=== PATIENT | male | born 1995 | race Caucasian/White ===

== ENCOUNTER 2016-07-16 00:14 | Emergency (ER) | payer OTHER ==
[2016-07-16] MEDS ORDERED: ACETAMINOPHEN 325 MG TAB As Ordered ONE (00:36)
--- NOTE | 2016-07-16 00:43 | EDDOCDS ---
Physician Documentation [facility] Name: Chad Martínez Age: 21 yrs Sex: Male : 1995 Arrival Date: 07/16/2016 Time: 00:14 Bed Triage 1 Private MD: Disposition: 07/16/16 00:33 Discharged to Home/Self Care. Impression: Otalgia, left ear, Abscess of left external ear. - Condition is Stable. - Discharge Instructions: Earache. - Medication Reconciliation, Local Pharmacy Hours form. - Follow up: Private Physician; When: Call to arrange an appointment; Reason: Recheck today's complaints, Continuance of care. - Problem is new. - Symptoms are unchanged. Historical: - Allergies: no known allergies; - Home Meds: 1. none - PMHx: Chronic Back pain; - PSHx: none; - Social history: Smoking status: Patient uses tobacco products, light tobacco smoker. Ethnicity: No barriers to communication noted, The patient speaks fluent South Sudanese, Speaks appropriately for age. - Family history: Not pertinent. - : The pt / caregiver states he / she is not on anticoagulants. Home medication list is obtained from the patient. - Exposure Risk Screening:: None identified. Vital Signs: 07/16 00:27 BP 146 / 83; Pulse 88; Resp 16; Temp 98.2(O); Pulse Ox 98% on R/A; Weight 91.63 kg / jo3 202.01 lbs; Height 5 ft. 8 in. (172.72 cm); 00:27 Body Mass Index 30.71 (91.63 kg, 172.72 cm) jo3 MDM: 00:32 Acetaminophen Tablet 975 mg PO once ordered. mo1 Administered Medications: 00:42 Drug: Acetaminophen 975 mg [acetaminophen 325 mg tablet (3 tabs)] Route: PO; jo3 Signatures: Alpa Palacios RN RN jo3 Artur Yee PA PA mo1 MTDD
--- NOTE | 2016-07-16 00:43 | EDDOCDS ---
Nurse's Notes [facility] Name: Chda Martínez Age: 21 yrs Sex: Male : 1995 Arrival Date: 07/16/2016 Time: 00:14 Bed Triage 1 Private MD: Diagnosis: Otalgia, left ear;Abscess of left external ear Presentation: 07/16 00:25 Presenting complaint: Patient states: Small amount of blood in left ear. denies pain. jo3 Adult Sepsis Screening: The patient does not have new or worsening altered mentation. Patient's respiratory rate is less than 22. Systolic blood pressure is greater than 100. Patient has a qSOFA score of 0- Negative Sepsis Screen. Suicide/Homicide risk assessment- the patient denies having any suicidal and/or homicidal ideations and does not present with any other emotional, behavioral or mental health complaints. 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 Transition of care: patient was not received from another setting of care. 00:25 Acuity: JAH Level 5 jo3 00:25 Method Of Arrival: Walkin/Carried/Asstd jo3 Triage Assessment: 00:27 General: Appears in no apparent distress, comfortable, Behavior is appropriate for age, jo3 cooperative. Pain: Denies pain. HIV screening NA for this visit Offered previously. Neurological: Level of Consciousness is awake, alert, Oriented to person, place, time. EENT: small amount of blood noted in left ear canal. Respiratory: No deficits noted. Airway is patent Respiratory effort is even, unlabored. Historical: - Allergies: no known allergies; - Home Meds: 1. none - PMHx: Chronic Back pain; - PSHx: none; - Social history: Smoking status: Patient uses tobacco products, light tobacco smoker. Ethnicity: No barriers to communication noted, The patient speaks fluent French, Speaks appropriately for age. - Family history: Not pertinent. - : The pt / caregiver states he / she is not on anticoagulants. Home medication list is obtained from the patient. - Exposure Risk Screening:: None identified. Screenin:42 Screening information is obtained from the patient. Fall risk: No risks identified. jo3 Assistance ADL's: requires no assistance with activities of daily living. Abuse/DV Screen: The patient / caregiver reports he/she is: not in a situation that causes fear, pain or injury. Nutritional screening: No deficits noted. Advance Directives: There is no active DNR order. home support is adequate. Assessment: 00:42 General: Appears in no apparent distress, comfortable, Behavior is appropriate for age, jo3 cooperative. Vital Signs: 00:27 BP 146 / 83; Pulse 88; Resp 16; Temp 98.2(O); Pulse Ox 98% on R/A; Weight 91.63 kg; jo3 Height 5 ft. 8 in. (172.72 cm); 00:27 Body Mass Index 30.71 (91.63 kg, 172.72 cm) jo3 Vitals: 00:27 Log In Time: July 16, 2016 at 00:14. jo3 ED Course: 00:15 Patient visited by Ashutosh Hall Reg. pm4 00:15 Patient moved to Waiting pm4 00:26 Triage Initiated jo3 00:29 Patient visited by Alpa Palacios RN. jo3 00:29 Patient moved to I2 / M2 jo3 00:30 Artur Yee PA is PHCP. mo1 00:30 Guru Key DO is Attending Physician. mo1 00:30 Patient moved to Triage 1 ajs 00:32 Patient visited by Artur Yee PA. mo1 00:42 The patient / caregiver is instructed regarding the plan of care and ED course. jo3 00:42 No IV's were initiated during this patient's visit. No procedures done that require jo3 assistance. Administered Medications: 00:42 Drug: Acetaminophen 975 mg [acetaminophen 325 mg tablet (3 tabs)] Route: PO; jo3 Order Results: There are currently no results for this order. Outcome: 00:33 Discharge ordered by Provider. mo1 00:42 Discharge Assessment: Patient awake, alert and oriented x 3. No cognitive and/or jo3 functional deficits noted. Patient verbalized understanding of disposition instructions. patient administered narcotics - no. The following High Risk Discharge criteria are identified: None. Discharged to home ambulatory, with significant other. Condition: stable. Discharge instructions given to patient, Instructed on discharge instructions, follow up and referral plans. Demonstrated understanding of instructions, Pt was receptive of discharge instructions/ teaching. No special radiology studies were completed. Property sent home with patient. 00:43 Patient left the ED. jo3 Signatures: Alpa Palacios RN RN jo3 Leta Ayala Michael, PA PA mo1 Ashutosh Hall, Reg Reg pm4 MTDD
--- NOTE | 2016-07-18 01:44 | EDDOCDS ---
Nurse's Notes [facility] Name: Chad Martínez Age: 21 yrs Sex: Male : 1995 Arrival Date: 07/16/2016 Time: 00:14 Bed Triage 1 Private MD: Diagnosis: Otalgia, left ear;Abscess of left external ear Presentation: 07/16 00:25 Presenting complaint: Patient states: Small amount of blood in left ear. denies pain. jo3 Adult Sepsis Screening: The patient does not have new or worsening altered mentation. Patient's respiratory rate is less than 22. Systolic blood pressure is greater than 100. Patient has a qSOFA score of 0- Negative Sepsis Screen. Suicide/Homicide risk assessment- the patient denies having any suicidal and/or homicidal ideations and does not present with any other emotional, behavioral or mental health complaints. 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 Transition of care: patient was not received from another setting of care. 00:25 Acuity: JAH Level 5 jo3 00:25 Method Of Arrival: Walkin/Carried/Asstd jo3 Triage Assessment: 00:27 General: Appears in no apparent distress, comfortable, Behavior is appropriate for age, jo3 cooperative. Pain: Denies pain. HIV screening NA for this visit Offered previously. Neurological: Level of Consciousness is awake, alert, Oriented to person, place, time. EENT: small amount of blood noted in left ear canal. Respiratory: No deficits noted. Airway is patent Respiratory effort is even, unlabored. Historical: - Allergies: no known allergies; - Home Meds: 1. none - PMHx: Chronic Back pain; - PSHx: none; - Social history: Smoking status: Patient uses tobacco products, light tobacco smoker. Ethnicity: No barriers to communication noted, The patient speaks fluent Mohawk, Speaks appropriately for age. - Family history: Not pertinent. - : The pt / caregiver states he / she is not on anticoagulants. Home medication list is obtained from the patient. - Exposure Risk Screening:: None identified. Screenin:42 Screening information is obtained from the patient. Fall risk: No risks identified. jo3 Assistance ADL's: requires no assistance with activities of daily living. Abuse/DV Screen: The patient / caregiver reports he/she is: not in a situation that causes fear, pain or injury. Nutritional screening: No deficits noted. Advance Directives: There is no active DNR order. home support is adequate. Assessment: 00:42 General: Appears in no apparent distress, comfortable, Behavior is appropriate for age, jo3 cooperative. Vital Signs: 00:27 BP 146 / 83; Pulse 88; Resp 16; Temp 98.2(O); Pulse Ox 98% on R/A; Weight 91.63 kg; jo3 Height 5 ft. 8 in. (172.72 cm); 00:27 Body Mass Index 30.71 (91.63 kg, 172.72 cm) jo3 Vitals: 00:27 Log In Time: July 16, 2016 at 00:14. jo3 ED Course: 00:15 Patient visited by Ashutosh Hall Reg. pm4 00:15 Patient moved to Waiting pm4 00:26 Triage Initiated jo3 00:29 Patient visited by Alpa Palacios RN. jo3 00:29 Patient moved to I2 / M2 jo3 00:30 Artur Yee PA is PHCP. mo1 00:30 Guru Key DO is Attending Physician. mo1 00:30 Patient moved to Triage 1 ajs 00:32 Patient visited by Artur Yee PA. mo1 00:42 The patient / caregiver is instructed regarding the plan of care and ED course. jo3 00:42 No IV's were initiated during this patient's visit. No procedures done that require jo3 assistance. 00:49 [facility] Payment Agreement was scanned into [employer] and attached to record. [facility] 14:22 T-Sheet-- Draft Copy was scanned into [employer] and attached to record. gb Administered Medications: 00:42 Drug: Acetaminophen 975 mg [acetaminophen 325 mg tablet (3 tabs)] Route: PO; jo3 Order Results: There are currently no results for this order. Outcome: 00:33 Discharge ordered by Provider. mo1 00:42 Discharge Assessment: Patient awake, alert and oriented x 3. No cognitive and/or jo3 functional deficits noted. Patient verbalized understanding of disposition instructions. patient administered narcotics - no. The following High Risk Discharge criteria are identified: None. Discharged to home ambulatory, with significant other. Condition: stable. Discharge instructions given to patient, Instructed on discharge instructions, follow up and referral plans. Demonstrated understanding of instructions, Pt was receptive of discharge instructions/ teaching. No special radiology studies were completed. Property sent home with patient. 00:43 Patient left the ED. jo3 Signatures: Ita Marquez, Reg Reg gb Alpa PalaciosRN RN jo3 Leta Ayala Michael, PA PA cordelia1 Deann Rosen Ashutosh Lemus, Reg Reg pm4 Chart Complete MTDD
--- NOTE | 2016-07-18 01:44 | EDDOCDS ---
Physician Documentation [facility] Name: Chad Martínez Age: 21 yrs Sex: Male : 1995 Arrival Date: 07/16/2016 Time: 00:14 Bed Triage 1 Private MD: Disposition: 07/16/16 00:33 Discharged to Home/Self Care. Impression: Otalgia, left ear, Abscess of left external ear. - Condition is Stable. - Discharge Instructions: Earache. - Medication Reconciliation, Local Pharmacy Hours form. - Follow up: Private Physician; When: Call to arrange an appointment; Reason: Recheck today's complaints, Continuance of care. - Problem is new. - Symptoms are unchanged. Historical: - Allergies: no known allergies; - Home Meds: 1. none - PMHx: Chronic Back pain; - PSHx: none; - Social history: Smoking status: Patient uses tobacco products, light tobacco smoker. Ethnicity: No barriers to communication noted, The patient speaks fluent Panamanian, Speaks appropriately for age. - Family history: Not pertinent. - : The pt / caregiver states he / she is not on anticoagulants. Home medication list is obtained from the patient. - Exposure Risk Screening:: None identified. Vital Signs: 07/16 00:27 BP 146 / 83; Pulse 88; Resp 16; Temp 98.2(O); Pulse Ox 98% on R/A; Weight 91.63 kg / jo3 202.01 lbs; Height 5 ft. 8 in. (172.72 cm); 00:27 Body Mass Index 30.71 (91.63 kg, 172.72 cm) jo3 MDM: 00:32 Acetaminophen Tablet 975 mg PO once ordered. mo1 00:43 Financial registration complete. [facility] 00:49 [facility] Payment Agreement was scanned into [employer] and attached to record. [facility] 14:22 T-Sheet-- Draft Copy was scanned into [employer] and attached to record. gb Administered Medications: 00:42 Drug: Acetaminophen 975 mg [acetaminophen 325 mg tablet (3 tabs)] Route: PO; jo3 Signatures: Ita Marquez, Alpa Morelos RN RN jo3 Artur Yee PA PA mo1 Deann Roesn [facility] The chart was reviewed and I authenticate all verbal orders and agree with the evaluation and treatment provided.Attachments: 00:49 [facility] [place] [facility] 14:22 T-Sheet-- Draft Copy gb Chart Complete MTDD
--- NOTE | 2016-07-18 01:44 | EDDOCDS ---
Physician Documentation [facility] Name: Chad Martínez Age: 21 yrs Sex: Male : 1995 Arrival Date: 07/16/2016 Time: 00:14 Bed Triage 1 Private MD: Disposition: 07/16/16 00:33 Discharged to Home/Self Care. Impression: Otalgia, left ear, Abscess of left external ear. - Condition is Stable. - Discharge Instructions: Earache. - Medication Reconciliation, Local Pharmacy Hours form. - Follow up: Private Physician; When: Call to arrange an appointment; Reason: Recheck today's complaints, Continuance of care. - Problem is new. - Symptoms are unchanged. Historical: - Allergies: no known allergies; - Home Meds: 1. none - PMHx: Chronic Back pain; - PSHx: none; - Social history: Smoking status: Patient uses tobacco products, light tobacco smoker. Ethnicity: No barriers to communication noted, The patient speaks fluent Chadian, Speaks appropriately for age. - Family history: Not pertinent. - : The pt / caregiver states he / she is not on anticoagulants. Home medication list is obtained from the patient. - Exposure Risk Screening:: None identified. Vital Signs: 07/16 00:27 BP 146 / 83; Pulse 88; Resp 16; Temp 98.2(O); Pulse Ox 98% on R/A; Weight 91.63 kg / jo3 202.01 lbs; Height 5 ft. 8 in. (172.72 cm); 00:27 Body Mass Index 30.71 (91.63 kg, 172.72 cm) jo3 MDM: 00:32 Acetaminophen Tablet 975 mg PO once ordered. mo1 00:43 Financial registration complete. [facility] 00:49 [facility] Payment Agreement was scanned into [employer] and attached to record. [facility] 14:22 T-Sheet-- Draft Copy was scanned into [employer] and attached to record. gb Administered Medications: 00:42 Drug: Acetaminophen 975 mg [acetaminophen 325 mg tablet (3 tabs)] Route: PO; jo3 Signatures: Ita Marquez, Alpa Morelos RN RN jo3 Artur Yee PA PA mo1 Deann Rosen [facility] The chart was reviewed and I authenticate all verbal orders and agree with the evaluation and treatment provided.Attachments: 00:49 [facility] [place] Payment Agreement [facility] 14:22 T-Sheet-- Draft Copy gb Chart Complete MTDD
== END 2016-07-16 00:43 | disposition home or self-care (01) ==
LOC: M ED 00:14
DX: S00.412A Abrasion of left ear, initial encounter (principal); X58.XXXA Exposure to other specified factors, initial encounter; Y92.89 Other specified places as the place of occurrence of the external cause; Y93.89 Activity, other specified; Y99.8 Other external cause status; G89.29 Other chronic pain; F17.200 Nicotine dependence, unspecified, uncomplicated

== ENCOUNTER 2017-03-25 01:00 | Emergency (ER) | payer OTHER ==
[~2017-03-25] VITALS: Ht 172.7 cm; Wt 93.0 kg
[2017-03-25] MEDS ORDERED: NAPR500T PO (01:47)
[2017-03-25] MEDS ORDERED: NAPROXEN 250 MG TAB PO ONE (02:00)
[2017-03-25 02:18] VITALS: BP 133/58
== END 2017-03-25 02:22 | disposition home or self-care (01) ==
LOC: M ED 01:00
DX: M71.21 Synovial cyst of popliteal space [Baker], right knee (principal); F17.210 Nicotine dependence, cigarettes, uncomplicated

== ENCOUNTER 2017-05-24 23:53 | Emergency (ER) | payer OTHER ==
[~2017-05-24] VITALS: Ht 172.7 cm; Wt 92.9 kg
[2017-05-24 23:53] VITALS: BP 140/82
[~2017-05-24 23:53] MED LIST: NAPR500T PO
== END 2017-05-25 02:53 | disposition left against medical advice (07) ==
LOC: M ED 23:53
DX: S99.919A Unspecified injury of unspecified ankle, initial encounter (principal); Z53.21 Procedure and treatment not carried out due to patient leaving prior to being seen by health care provider

== ENCOUNTER 2017-08-16 05:42 | Emergency (ER) | payer OTHER ==
[2017-08-16] MEDS: KETOROLAC 60 MG/2 ML VIAL (J1885) IM (07:24)
[2017-08-16 07:39] LABS: APPEARANCE, URINE CLEAR (CLEAR); BACTERIA, URINE AUTO NEGATIVE (NEGATIVE); BILIRUBIN, URINE AUTO NEGATIVE (NEGATIVE); BLOOD, URINE BLOOD 1+ (NEGATIVE); COLOR, URINE YELLOW (YELLOW); GLUCOSE, URINE (UA) AUTO NEGATIVE (NEGATIVE); KETONE, URINE AUTO TRACE mg/dL (NEGATIVE); LEUKOCYTE ESTERASE, URINE AUTO NEGATIVE (NEGATIVE); MUCUS, URINE SMALL (NEGATIVE); NITRITE, URINE AUTO NEGATIVE (NEGATIVE); PROTEIN, URINE AUTO NEGATIVE (NEGATIVE); RBC, URINE AUTO 1 /HPF (0-3); SPECIFIC GRAVITY URINE AUTO 1.013 (1.002-1.035); SQUAMOUS EPITHELIAL CELL UR AU 0 /HPF (0-6); WBC, URINE AUTO 0 /HPF (0-3)
== END 2017-08-16 07:54 | disposition home or self-care (01) ==
LOC: M ED 05:42
DX: S20.222A Contusion of left back wall of thorax, initial encounter (principal); W10.9XXA Fall (on) (from) unspecified stairs and steps, initial encounter; Y92.009 Unspecified place in unspecified non-institutional (private) residence as the place of occurrence of the external cause; F17.210 Nicotine dependence, cigarettes, uncomplicated
CPT/HCPCS: J1885

== ENCOUNTER 2019-01-01 16:53 | Emergency (ER) | payer OTHER ==
[~2019-01-01] VITALS: Ht 172.7 cm; Wt 90.7 kg
[~2019-01-01 16:53] MED LIST changes: +NAPR-837 PO; -NAPR500T PO
[2019-01-01 16:54] VITALS: BP 140/83
[2019-01-01] MEDS ORDERED: IBUP-1022 PO (17:52)
[2019-01-01] MEDS ORDERED: IBUPROFEN 600 MG TAB PO ONE (18:00)
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
== END 2019-01-01 18:05 | disposition home or self-care (01) ==
LOC: M ED 16:53
DX: S83.421A Sprain of lateral collateral ligament of right knee, initial encounter (principal); W19.XXXA Unspecified fall, initial encounter; Y92.9 Unspecified place or not applicable; Y93.9 Activity, unspecified; Y99.9 Unspecified external cause status

== ENCOUNTER → 2019-10-08 | Outpatient (REF) | payer OTHER ==
[~2019-10-08] MED LIST changes: +IBUP-1022 PO
[2019-10-08 12:52] LABS: BASO # 0.1 10^3/uL (0.0-0.2); BASO % 0.7 % (0.0-1.0); EOS # 0.2 10^3/uL (0.0-0.5); EOS % 1.9 % (0.0-3.0); HEMOGLOBIN 15.8 g/dl (13.5-17.5); LYMPH # 3.4 10^3/uL (1.5-5.0); LYMPH % 33.3 % (24.0-44.0); MEAN CORPUSCULAR HEMOGLOBIN 30.7 pg (27.0-33.0); MEAN CORPUSCULAR HGB CONC 34.3 g/dl (32.0-36.5); MEAN CORPUSCULAR VOLUME 89.3 fl (80.0-96.0); MONO # 0.9 10^3/uL (0.0-0.8); MONO % 9.2 % (0.0-5.0); NEUTROPHILS # 5.6 10^3/uL (1.5-8.5); NEUTROPHILS % 54.6 % (36.0-66.0); PLATELET COUNT, AUTOMATED 239 10^3/uL (150-450); RED BLOOD COUNT 5.15 10^6/uL (4.30-6.10); WHITE BLOOD COUNT 10.3 10^3/uL (4.0-10.0)
[2019-10-08 13:26] LABS: ALBUMIN 4.2 GM/DL (3.2-5.2); ALT/SGPT 31 U/L (12-78); BILIRUBIN,TOTAL 1.2 MG/DL (0.2-1.0); BLOOD UREA NITROGEN 20 MG/DL (7-18); CALCIUM LEVEL 9.2 MG/DL (8.5-10.1); CARBON DIOXIDE LEVEL 25 MEQ/L (21-32); CHLORIDE LEVEL 106 MEQ/L (98-107); CHOLESTEROL LEVEL 199 MG/DL (<200); CHOLESTEROL RISK RATIO 4.326 (<5); CREATININE FOR GFR 0.97 MG/DL (0.70-1.30); FREE T4 1.31 NG/DL (0.76-1.46); GLOMERULAR FILTRATION RATE > 60.0 (>60); GLUCOSE, FASTING 89 MG/DL (70-100); HDL CHOLESTEROL 46 MG/DL (>40); LDL CHOLESTEROL 127 MG/DL (<100); NON-HDL-C 153 MG/DL; POTASSIUM SERUM 3.6 MEQ/L (3.5-5.1); SODIUM LEVEL 137 MEQ/L (136-145); THYROID STIMULATING HORMONE 0.839 uIU/ML (0.358-3.740); TOTAL 25(OH) VITAMIN D 18.5 NG/ML (30.0-100.0); TRIGLYCERIDES LEVEL 132 MG/DL (<150)
[2019-10-08 13:58] LABS: HEMOGLOBIN A1c 5.2 %
== END ==
LOC: M LAB REF 12:24
PROVIDERS: ATTEND Nurse Practitioner Family
DX: Z13.9 Encounter for screening, unspecified (principal); Z13.29 Encounter for screening for other suspected endocrine disorder; F12.90 Cannabis use, unspecified, uncomplicated

== ENCOUNTER 2020-05-11 17:42 | Emergency (ER) | payer OTHER, MEDICAID ==
[~2020-05-11] VITALS: Ht 172.7 cm; Wt 89.2 kg
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
[2020-05-11] MEDS ORDERED: NORCO 5/325MG TABLET (BULK FOR ED) PO ONE (19:00)
[2020-05-11] MEDS ORDERED: PERCOCET 5MG/325MG TAB PO ONE (19:00)
[2020-05-11] MEDS ORDERED: NORC1TAB7 PO (19:09)
[2020-05-11 19:21] VITALS: BP 140/93
== END 2020-05-11 19:23 | disposition home or self-care (01) ==
LOC: M ED 17:42
DX: S62.355A Nondisplaced fracture of shaft of fourth metacarpal bone, left hand, initial encounter for closed fracture (principal); W22.8XXA Striking against or struck by other objects, initial encounter; Y92.099 Unspecified place in other non-institutional residence as the place of occurrence of the external cause; Y93.89 Activity, other specified; Y99.9 Unspecified external cause status; F17.200 Nicotine dependence, unspecified, uncomplicated

== ENCOUNTER → 2020-05-29 | Outpatient (CLI) | payer OTHER, MEDICAID ==
[~2020-05-29] MED LIST changes: +NORC1TAB7 PO
== END ==
LOC: M LABSMTC 09:14
PROVIDERS: ATTEND Anesthesiology
DX: Z11.59 Encounter for screening for other viral diseases (principal)

== ENCOUNTER 2020-06-03 07:56 | Day surgery (SDC) | payer OTHER ==
[~2020-06-03] VITALS: Ht 172.7 cm; Wt 90.3 kg
[~2020-06-03 07:56] MED LIST changes: +LR 1,000 ML IV ONE; +ceFAZolin SOD 2 GM in IV 1 EA IV ONE
[2020-06-03] MEDS ORDERED: MIDAZOLAM INJ 2MG/2ML VIAL (J2250 PER 1MG) As Ordered ONE (08:43)
[2020-06-03] MEDS ORDERED: fentaNYL 100 MCG/2 ML INJECTION (J3010) As Ordered ONE ×2 (08:44→12:30)
--- NOTE | 2020-06-03 10:16 | IPN ---
PROGRESS NOTE DATE: 06/03/2020 SUBJECTIVE AND PLAN: Patient seen and examined. He wished to go ahead with an ORIF of his left fourth metacarpal fracture. He is left hand dominant. He wants to do this to hopefully improve function of his hand, but also for cosmetic reasons so he does not have a bump on the back of his hand and a shortened fourth digit. He was scheduled for last week, but did not get his COVID test on time. he knows that we are quite some time from the injury somewhere around 3+ weeks and there is likely to be some healing which will make this more challenging to likely take-down the fracture and realign it and hopefully plate it. He under stands the nature of this, the risks of bleeding, infection, damage to nerves and vessels, persistent pain, malunion, nonunion, loss or reduction, stiffness, tendon injury among others.
[2020-06-03] MEDS ORDERED: dexameTHASONE 4 MG/ML 1ML VIAL (J1100 PER 1MG) As Ordered ONE (10:33)
[2020-06-03] MEDS ORDERED: propofoL 200 MG/20 ML VIAL As Ordered ONE (10:33)
[2020-06-03] MEDS ORDERED: METOCLOPRAMIDE INJ 10MG/2ML VIAL (J2765 PER 1) As Ordered ONE (10:33)
[2020-06-03] MEDS ORDERED: ACETAMINOPHEN 1000MG 100ML IV BTL (OFIRMEV) (J0131 PER 10MG) As Ordered ONE (10:34)
[2020-06-03] MEDS ORDERED: KETOROLAC 60MG 2ML VIAL As Ordered ONE (10:35)
[2020-06-03] MEDS ORDERED: ONDANSETRON 4MG/2ML VIAL As Ordered ONE (10:35)
[2020-06-03] MEDS ORDERED: BUPIVACAINE HCL 0.5% 30 ML VIAL As Ordered ONE (11:20)
[2020-06-03] MEDS ORDERED: HYDROmorphone HCL 2 MG/ML 1ML VIAL (J1170) As Ordered ONE (11:22)
--- NOTE | 2020-06-03 11:30 | REP ---
INDICATION: LEFT FOREARM FRACTURE. COMPARISON: Comparison left hand radiographs May 11, 2020.. TECHNIQUE: Three views. 11.7 seconds of fluoroscopy time is reported. FINDINGS: A sequence of 3 last image hold fluoroscopically obtained spot radiographs document screw plate fixation along the dorsal aspect of the 4th metacarpal. IMPRESSION: Procedural imaging. <Electronically signed by Alejandro Mallory > 06/03/20 1122
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
[2020-06-03] MEDS ORDERED: PERCOCET 5MG/325MG TAB As Ordered ONE (12:37)
[2020-06-03] MEDS ORDERED: NORCO, ANEXSIA 5/325MG TABLET (HYDROcodone/ACETAMINOPHEN) PO PRN ×2 (12:45)
[2020-06-03] MEDS ORDERED: ONDANSETRON 4MG/2ML VIAL IV PRN (12:45)
[2020-06-03] MEDS ORDERED: MEPERIDINE INJ 25 MG/ML VIAL (J2175) IV PRN (12:45)
[2020-06-03] MEDS ORDERED: PERCOCET 5MG/325MG TAB PO PRN (12:45)
[2020-06-03] MEDS ORDERED: METOCLOPRAMIDE INJ 10MG/2ML VIAL (J2765 PER 1) IV PRN (12:45)
[2020-06-03] MEDS ORDERED: fentaNYL 100 MCG/2 ML INJECTION (J3010) IV PRN (12:45)
[2020-06-03] MEDS ORDERED: LR 1,000 ML IV SCH ×2 (12:45)
[2020-06-03] MEDS ORDERED: MORPHINE 4 MG/ML 1ML VIAL/SYRINGE (J2270) IV PRN (12:45)
[2020-06-03 14:10] VITALS: BP 128/69
== END 2020-06-03 14:31 | disposition home or self-care (01) ==
LOC: M SDC 07:56
PROVIDERS: ATTEND Orthopaedic Surgery
DX: S62.325A Displaced fracture of shaft of fourth metacarpal bone, left hand, initial encounter for closed fracture (principal); W22.09XA Striking against other stationary object, initial encounter; Y93.89 Activity, other specified; Y99.9 Unspecified external cause status; Y92.89 Other specified places as the place of occurrence of the external cause; I10 Essential (primary) hypertension; E78.00 Pure hypercholesterolemia, unspecified; F41.9 Anxiety disorder, unspecified; F17.218 Nicotine dependence, cigarettes, with other nicotine-induced disorders
CPT/HCPCS: 26615; 76000; C1713; J0131; J0690; J1100; J1170; J1885; J2250; J2405; J2765; J3010

== ENCOUNTER 2021-04-12 03:36 | Emergency (ER) | payer OTHER ==
[~2021-04-12] VITALS: Ht 172.7 cm; Wt 89.1 kg
[~2021-04-12 03:36] MED LIST changes: -LR 1,000 ML IV ONE; -ceFAZolin SOD 2 GM in IV 1 EA IV ONE
[2021-04-12 03:37] VITALS: BP 155/91
--- OUTSIDE RECORDS SUMMARY | 2021-04-12 03:41 | CCD ---
Author Author [facility] Organization [facility] Address Unknown Phone Unavailable Care Team Providers Care Order Processing Specialist Name Role Phone Fish, B Allen FOLEY Unavailable Unavailable Fish, B Allen FOLEY Unavailable Unavailable Fish, B Allen FOLEY Unavailable Unavailable Fish, B Allen FOLEY Unavailable Unavailable Fish, B Allen FOLEY Unavailable Unavailable Fish, B Allen FOLEY Unavailable Unavailable Fish, B Allen FOLEY Unavailable Unavailable Fish, B Allen FOLEY Unavailable Unavailable Fish, B Allen FOLEY Unavailable Unavailable Fish, B Allen FOLEY Unavailable Unavailable Fish, B Allen FOLEY Unavailable Unavailable Fish, B Allen FOLEY Unavailable Unavailable Fish, B Allen FOLEY Unavailable Unavailable Fish, B Allen FOLEY Unavailable Unavailable Fish, B Allen FOLEY Unavailable Unavailable Fish, B Allen FOLEY Unavailable Unavailable Fish, B Allen FOLEY Unavailable Unavailable Fish, B Allen FOLEY Unavailable Unavailable Fish, B Allen FOLEY Unavailable Unavailable Fish, B Allen FOLEY Unavailable Unavailable Fish, B Allen FOLEY Unavailable Unavailable Fish, B Allen FOLEY Unavailable Unavailable Fish, B Allen FOLEY Unavailable Unavailable Fish, B Allen FOLEY Unavailable Unavailable Fish, B Allen FOLEY Unavailable Unavailable Fish, B Allen FOLEY Unavailable Unavailable Fish, B Allen FOLEY Unavailable Unavailable Fish, B Allen FOLEY Unavailable Unavailable Fish, B Allen FOLEY Unavailable Unavailable Fish, B Allen FOLEY Unavailable Unavailable Fish, B Allen FOLEY Unavailable Unavailable Fish, B Allen FOLEY Unavailable Unavailable Fish, B Allen FOLEY Unavailable Unavailable Fish, B Allen FOLEY Unavailable Unavailable Fish, B Allen FOLEY Unavailable Unavailable Fish, B Allen FOLEY Unavailable Unavailable Fish, B Allen FOLEY Unavailable Unavailable Fish, B Allen FOLEY Unavailable Unavailable Fish, B Allen FOLEY Unavailable Unavailable Fish, B Allen FOLEY Unavailable Unavailable Fish, B Allen FOLEY Unavailable Unavailable Fish, B Allen FOLEY Unavailable Unavailable Fish, B Allen FOLEY Unavailable Unavailable Fish, B Allen FOLEY Unavailable Unavailable Fish, B Allen FOLEY Unavailable Unavailable Fish, B Allen FOLEY Unavailable Unavailable Fish, B Allen FOLEY Unavailable Unavailable Fish, B Allen FOLEY Unavailable Unavailable Fish, B Allen FOLEY Unavailable Unavailable Fish, B Allen FOLEY Unavailable Unavailable Fish, B Allen FOLEY Unavailable Unavailable Fish, B Allen FLOEY Unavailable Unavailable Fish, B Allen FOLEY Unavailable Unavailable Fish, B Allen FOLEY Unavailable Unavailable Fish, B Allen FOLEY Unavailable Unavailable Fish, B Allen FOLEY Unavailable Unavailable MCELHERAN, RADHA PA Unavailable Unavailable MCELHERAN, RADHA PA Unavailable Unavailable MCELHERAN, RADHA PA Unavailable Unavailable MCELHERAN, RADHA PA Unavailable Unavailable MCELHERAN, RADHA PA Unavailable Unavailable MCELHERAN, RADHA PA Unavailable Unavailable MCELHERAN, RADHA PA Unavailable Unavailable MCELHERAN, RADHA PA Unavailable Unavailable MCELAN, RADHA PA Unavailable Unavailable MCELHERAN, RADHA PA Unavailable Unavailable MCELHERAN, RADHA PA Unavailable Unavailable MCELHERAN, RADHA PA Unavailable Unavailable MCELHERAN, RADHA PA Unavailable Unavailable MCELHERAN, RADHA PA Unavailable Unavailable MCELHERAN, RADHA PA Unavailable Unavailable MCELHERAN, RADHA PA Unavailable Unavailable MCELHERAN, RADHA PA Unavailable Unavailable MCELHERAN, RADHA PA Unavailable Unavailable MCELHERAN, RADHA PA Unavailable Unavailable MCELHERAN, RADHA PA Unavailable Unavailable MCELHERAN, RADHA PA Unavailable Unavailable MCELHERAN, RADHA PA Unavailable Unavailable MCELHERAN, RADHA PA Unavailable Unavailable MCELHERAN, RADHA PA Unavailable Unavailable MCELHERAN, RADHA PA Unavailable Unavailable MCELHERAN, RADHA PA Unavailable Unavailable MCELHERAN, RADHA PA Unavailable Unavailable MCELHERAN, RADHA PA Unavailable Unavailable MCELHERAN, RADHA PA Unavailable Unavailable Eugene, A Mechelle INBOUND CALL CENTER REPRESENTATIVE Unavailable Unavailable Eugene, A Mechelle INBOUND CALL CENTER REPRESENTATIVE Unavailable Unavailable Eugene, A Mechelle INBOUND CALL CENTER REPRESENTATIVE Unavailable Unavailable Eugene, A Mechelle INBOUND CALL CENTER REPRESENTATIVE Unavailable Unavailable Eugene, A Mechelle INBOUND CALL CENTER REPRESENTATIVE Unavailable Unavailable Eugene, A Mechelle INBOUND CALL CENTER REPRESENTATIVE Unavailable Unavailable Eugene, A Mechelle INBOUND CALL CENTER REPRESENTATIVE Unavailable Unavailable [place]bury, A Mechelle INBOUND CALL CENTER REPRESENTATIVE Unavailable Unavailable [place], A Mechelle INBOUND CALL CENTER REPRESENTATIVE Unavailable Unavailable [place]bury, A Mechelle INBOUND CALL CENTER REPRESENTATIVE Unavailable Unavailable [place], A Mechelle INBOUND CALL CENTER REPRESENTATIVE Unavailable Unavailable [place], A Mechelle INBOUND CALL CENTER REPRESENTATIVE Unavailable Unavailable [place], A Mechelle INBOUND CALL CENTER REPRESENTATIVE Unavailable Unavailable [place], A Mechelle INBOUND CALL CENTER REPRESENTATIVE Unavailable Unavailable [place], A Mechelle INBOUND CALL CENTER REPRESENTATIVE Unavailable Unavailable Sudbury, A Mechelle INBOUND CALL CENTER REPRESENTATIVE Unavailable Unavailable [place], A Mechelle INBOUND CALL CENTER REPRESENTATIVE Unavailable Unavailable [place], A Mechelle INBOUND CALL CENTER REPRESENTATIVE Unavailable Unavailable [place], A Mechelle INBOUND CALL CENTER REPRESENTATIVE Unavailable Unavailable [place], A Mechelle INBOUND CALL CENTER REPRESENTATIVE Unavailable Unavailable [place], A Mechelle INBOUND CALL CENTER REPRESENTATIVE Unavailable Unavailable [place], A Mechelle INBOUND CALL CENTER REPRESENTATIVE Unavailable Unavailable [place], A Mechelle INBOUND CALL CENTER REPRESENTATIVE Unavailable Unavailable [place], A Mechelle INBOUND CALL CENTER REPRESENTATIVE Unavailable Unavailable [place], A Mechelle INBOUND CALL CENTER REPRESENTATIVE Unavailable Unavailable [place], A Mechelle INBOUND CALL CENTER REPRESENTATIVE Unavailable Unavailable [place], A Mechelle INBOUND CALL CENTER REPRESENTATIVE Unavailable Unavailable [place], A Mechelle INBOUND CALL CENTER REPRESENTATIVE Unavailable Unavailable [place], A Mechelle INBOUND CALL CENTER REPRESENTATIVE Unavailable Unavailable [place], A Mechelle INBOUND CALL CENTER REPRESENTATIVE Unavailable Unavailable Eugene, A Mechelle INBOUND CALL CENTER REPRESENTATIVE Unavailable Unavailable Shah, M Barratt PA Unavailable Unavailable Shah, M Barratt PA Unavailable Unavailable Shah, M Barratt PA Unavailable Unavailable Shah, M Barratt PA Unavailable Unavailable Shah, M Barratt PA Unavailable Unavailable Shah, M Barratt PA Unavailable Unavailable Shah, M Barratt PA Unavailable Unavailable Shah, M Barratt PA Unavailable Unavailable Shah, M Barratt PA Unavailable Unavailable Shah, M Barratt PA Unavailable Unavailable Shah, M Barratt PA Unavailable Unavailable Shah, M Barratt PA Unavailable Unavailable Shah, M Barratt PA Unavailable Unavailable Shah, M Barratt PA Unavailable Unavailable Shah, M Barratt PA Unavailable Unavailable Shah, M Barratt PA Unavailable Unavailable Shah, M Barratt PA Unavailable Unavailable Shah, M Barratt PA Unavailable Unavailable Shah, M Barratt PA Unavailable Unavailable Shah, M Barratt PA Unavailable Unavailable Shah, M Barratt PA Unavailable Unavailable Shah, M Barratt PA Unavailable Unavailable Shah, M Barratt PA Unavailable Unavailable Shah, M Barratt PA Unavailable Unavailable Shah, M Barratt PA Unavailable Unavailable Shah, M Barratt PA Unavailable Unavailable Shah, M Barratt PA Unavailable Unavailable Shah, M Barratt PA Unavailable Unavailable Shah, M Barratt PA Unavailable Unavailable Fish, B Allen FOLEY Unavailable Unavailable Fish, B Allen FOLEY Unavailable Unavailable Fish, B Allen FOLEY Unavailable Unavailable Fish, B Allen FOLEY Unavailable Unavailable Fish, B Allen FOLEY Unavailable Unavailable Fish, B Allen FOLEY Unavailable Unavailable Fish, B Allen FOLEY Unavailable Unavailable Fish, B Allen FOLEY Unavailable Unavailable Fish, B Allen FOLEY Unavailable Unavailable Fish, B Allen FOLEY Unavailable Unavailable Fish, B Allen FOLEY Unavailable Unavailable Fish, B Allen FOLEY Unavailable Unavailable Fish, B Allen FOLEY Unavailable Unavailable Fish, B Allen FOLEY Unavailable Unavailable Fish, B Allen FOLEY Unavailable Unavailable Fish, B Allen FOLEY Unavailable Unavailable Fish, B Allen FOLEY Unavailable Unavailable Fish, B Allen FOLEY Unavailable Unavailable Fish, B Allen FOLEY Unavailable Unavailable Fish, B Allen FOLEY Unavailable Unavailable Fish, B Allen FOLEY Unavailable Unavailable Fish, B Allen FOLEY Unavailable Unavailable Fish, B Allen FOLEY Unavailable Unavailable Fish, B Allen FOLEY Unavailable Unavailable Fish, B Allen FOLEY Unavailable Unavailable Fish, B Allen FOLEY Unavailable Unavailable Fish, B Allen FOLEY Unavailable Unavailable Fish, B Allen FOLEY Unavailable Unavailable Fish, B Allen FOLEY Unavailable Unavailable Fish, B Allen FOLEY Unavailable Unavailable Fish, B Allen FOLEY Unavailable Unavailable Fish, B Allen FOLEY Unavailable Unavailable Fish, B Allen FOLEY Unavailable Unavailable Fish, B Allen FOLEY Unavailable Unavailable Fish, B Allen FOLEY Unavailable Unavailable Fish, B Allen FOLEY Unavailable Unavailable Fish, B Allen FOLEY Unavailable Unavailable Fish, B Allen FOLEY Unavailable Unavailable Fish, B Allen FOLEY Unavailable Unavailable Fish, B Allen FOLEY Unavailable Unavailable Fish, B Allen FOLEY Unavailable Unavailable Fish, B Allen FOLEY Unavailable Unavailable Fish, B Allen FOLEY Unavailable Unavailable Fish, B Allen FOLEY Unavailable Unavailable Fish, B Allen FOLEY Unavailable Unavailable Fish, B Allen FOLEY Unavailable Unavailable Fish, B Allen FOLEY Unavailable Unavailable Fish, B Allen FOLEY Unavailable Unavailable Fish, B Allen FOLEY Unavailable Unavailable Fish, B Allen FOLEY Unavailable Unavailable Fish, B Allen FOLEY Unavailable Unavailable Fish, B Allen FOLEY Unavailable Unavailable Fish, B Allen FOLEY Unavailable Unavailable Fish, B Allen FOLEY Unavailable Unavailable Fish, B Allen FOLEY Unavailable Unavailable Fish, B Allen FOLEY Unavailable Unavailable Re-disclosure Warning The records that you are about to access may contain information from federally-assisted alcohol or drug abuse programs. If such information is present, then the following federally mandated warning applies: This information has been disclosed to you from records protected by federal confidentiality rules (42 CFR part 2). The federal rules prohibit you from making any further disclosure of this information unless further disclosure is expressly permitted by the written consent of the person to whom it pertains or as otherwise permitted by 42 CFR part 2. A general authorization for the release of medical or other information is NOT sufficient for this purpose. The Federal rules restrict any use of the information to criminally investigate or prosecute any alcohol or drug abuse patient.The records that you are about to access may contain highly sensitive health information, the redisclosure of which is protected by Article 27-F of the [facility] Public Health law. If you continue you may have access to information: Regarding HIV / AIDS; Provided by facilities licensed or operated by the [facility] Office of Mental Health; or Provided by the [facility] Office for People With Developmental Disabilities. If such information is present, then the following [facility] mandated warning applies: This information has been disclosed to you from confidential records which are protected by state law. State law prohibits you from making any further disclosure of this information without the specific written consent of the person to whom it pertains, or as otherwise permitted by law. Any unauthorized further disclosure in violation of state law may result in a fine or residential sentence or both. A general authorization for the release of medical or other information is NOT sufficient authorization for further disc losure. Encounters Encounter Providers Location Date Indications Data Source(s ) Office Visit Attender: Allen Nguyen MD Physical Therapy 2020 02:45:00 PM EST [facility] Visit Attender: Allen Nguyen MD Physical Therapy 2020 02:45:00 PM EST [facility] ([facility]) Office Visit Attender: RADHA SORENSEN Physical Therapy 06/15/2020 12:30:00 PM EST [facility] ([facility]) Outpatient Attender: Allen Nguyen MDConsultant: Mechelle Ja angelicpopeye INBOUND CALL CENTER REPRESENTATIVE 05/24/2020 04:54:00 PM EST - 05/24/2020 05:54:00 PM EST [facility] Outpatient Attender: Allen Nguyen MD Physical Therapy 05/23/2020 0 2:00:00 PM EST [facility] ([facility]) OFFICE OUTPATIENT NEW 30 MINUTES Attender: Shane SORENSEN Ph ysical Therapy 05/13/2020 10:15:00 AM EST [facility] ([facility]) Immunizations Vaccine Date Status Description Data Source(s) COVID-19 VACCINE Moderna 11/15/2020 12:00:00 AM EDT completed [facility] Vaccine Series Complete: YESThis Data wa s Submitted to [facility] Via [employer]. COVID-19 VACCINE Moderna 10/18/2020 12:00:00 AM EDT completed [facility] Vaccine Series Complete: NOThis Data was Submitted to [facility] Via [employer]. Medications Medication Brand Name Start Date Product Form Dose Route Admi nistrative Instructions Pharmacy Instructions Status Indications Reaction Description Data Source(s) 300-30 mg 06/06/2020 12:00:00 AM EST tablet 30 TAKE 1-2 TABLETS BY MOUTH EVERY 4-6 HOURS NEEDED FOR POST SURGICAL PAIN , MAXIMUM DAILY DOSE = 8 TABLETS TAKE 1-2 TABLETS BY MOUTH EVERY 4-6 HOUR S NEEDED FOR POST SURGICAL PAIN , MAXIMUM DAILY DOSE = 8 TABLETS SOLD: 06/06/2020 [facility] Acetaminophen 300 MG / Codeine Phosphate 30 MG Oral Tablet [Tylenol with Codeine] Tylenol With Codeine #3 05/31/2020 12:00:00 AM EST ORAL active [facility] ([facility]) Acetaminophen 300 MG / Codeine Phosphate 30 MG Oral Tablet [Tylenol with Codeine] Tylenol With Codeine #3 05/23/2020 12:00:00 AM EST ORAL completed [facility] ([facility]) 5-325 mg 05/11/2020 12:00:00 AM EST tablet 15 TAKE ONE TABLET BY MOUTH THREE TIMES A DAY MAXIMUM DAILY DOSE = 3 TABLETS TAKE ONE TABLET BY MOUTH THREE TIMES A DAY MAXIMUM DAILY DOSE = 3 TABLETS SOLD: 05/13/2020 [facility] Insurance Providers Payer name Policy type / Coverage type Policy ID Covered green party ID Covered green party's relationship to ramsay Policy [place] Plan Information [facility] Plan P [id number] S [id number] Medicaid S [id number] S [id number] [place] [id number] SP [id number] [facility] PLAN XIX [id number] [facility] Plan P UNAVAILABLE S UNAVAILABLE Medicaid S UNAVAILABLE S UNA[place]ILA BLE MEDICAID [id number] SP [id number] SELF PAY UNAVAILABLE SELF UNAVAILA BLE [facility] PLAN [id number] [id number] SP [id number] [facility] O [id number] S [id number] Problems, Conditions, and Diagnoses Code Display Name Description Problem Type Effective Dates Data Source(s) [id number] Nondisplaced fracture of sha ft of fourth metacarpal bone, left hand, subsequent encounter for fracture with routine healing Nondisplaced fracture of shaft of fourth metacarpal bone, left hand, subsequent encounter for fracture with routine healing Diagnosis 05/24/2020 04:54:00 PM [facility] [id number] Encounter for screening for other viral diseases Encounter for screening for other viral diseases Diagnosis 05/24/2020 04:54:00 PM [facility] [id number] Encounter for other preprocedural examin ation Encounter for other preprocedural examination Diagnosis 05/24/2020 04:54:00 PM [facility] [id number] Essential hypertension Essential hypertension Problem 05/23/2020 12:00:00 AM EST [facility] ([facility] [id number] Pure hypercholesterolemia Pure hypercholesterolemia Pr oblem 05/13/2020 12:00:00 AM EST [facility] ([facility] ) Surgeries/Procedures Procedure Description Date Indications Data Source(s) RADEX WRIST COMPLETE MINIMUM 3 VIEWS 09/01/2020 12:00: 00 AM EST [facility] ([facility] ) RADEX HAND MINIMUM 3 VIEWS 07/06/2020 12:00:00 AM EST [facility] ([facility] ) RADEX HAND MINIMUM 3 VIEWS 06/15/2020 12:00:00 AM EST [facility] ([facility] OPEN TX METACARPAL FRACTURE SINGLE EA BONE 06/03/2020 12:00:00 AM EST [facility] ([facility] ) RADEX HAND MINIMUM 3 VIEWS 05/23/2020 12:00:00 AM EST [facility] ([facility] ) APPLICATION CAST ELBOW FINGER SHORT ARM 05/13/2020 12: 00:00 AM EST [facility] ([facility]) Results ID Date Data Source [id number] 05/29/2020 09:00:00 AM EST [facility] Name Value Range Interpretation Code Description Data Tamra rce(s) Supporting Document(s) SARS coronavirus 2 RNA [facility] This lab was ordered by [facility] and reported by [employer]. ID Date Data Source [id number] 05/24/2020 05:03:00 PM EST [facility] ([facility]) Name Value Range Interpretation Code Description Data Tamra rce(s) Supporting Document(s) Coronavirus Covid-19 Laboratory test result [facility] ([facility]) This nucleic acid amplification test was developed and its performance characteristics determined by [facility] [employer]. Nucleic acid amplification tests include PCR and TMA. This test has not been FDA cleared or approved. This test has been authorized by FDA under an Emergency Use Authorization (EUA). This test is only authorized for the duration of time the declaration that circumstances exist justifying the authorization of the emergency use of in vitro diagnostic tests for detection of SARS-CoV-2 virus and/or diagnosis of COVID-19 infection under section 564(b)(1) of the Act, 21 U.S.C. 360bbb-3(b) (1), unless the authorizatio n is terminated or revoked sooner. When diagnostic testing is negative, the possibility of a false negative result should be considered in the context of a patient's recent exposures and the presence of clinical signs and symptoms consistent with COVID-19. An individual without symptoms of COVID-19 and who is not shedding SARS-CoV-2 virus would expect to have a negative (not detected) result in this assay. ID Date Data Source [id number] 05/24/2020 05:03:00 PM EST [facility] Name Value Range Interpretation Code Description Data Tamra rce(s) Supporting Document(s) SARS coronavirus 2 RNA [facility] This lab was ordered by [facility] no and reported by [employer]. ID Date Data Source [id number] 05/26/2020 08:09:00 PM EST [facility] Name Value Range Interpretation Code Description Data Tamra rce(s) Supporting Document(s) SARS-CoV-2, YVETTE Not Detected Not Detected [facility] This nucleic acid amplification test was developed and its performancecharacteristics determined by [facility] [employer]. Nucleic acidamplification tests include PCR and TMA. This test has not been FDAcleared or approved. This test has been authorized by FDA under anEmergency Use Authorization (EUA). This test is only authorized forthe duration of time the declaration that circumstances existjustifying the authorization of the emergency use of in vitrodiagnostic tests for detection of SARS-CoV-2 virus and/or diagnosisof COVID-19 infection under section 564(b)(1) of the Act, 21 U.S.C.360bbb-3(b) (1), unless the authorization is terminated or revokedsooner.When diagnostic testing is negative, the possibility of a falsenegative result should be considered in the context of a patient'srecent exposures and the presence of clinical signs and symptomsconsistent with COVID- 19. An individual without symptoms of COVID-19and who is not shedding SARS-CoV-2 virus would expect to have anegative (not detected) result in this assay. Procedure Social History No Information
--- OUTSIDE RECORDS SUMMARY | 2021-04-12 06:29 | CCD ---
Author Author [facility] Organization [facility] Address Unknown Phone Unavailable Care Team Providers Care Low Vision Therapist Name Role Phone Fish, B Allen FOLEY [...] RADHA PA Unavailable Unavailable Eugene, A Mechelle BLISTER RUST ERADICATOR Unavailable Unavailable Eugene, A Mechelle BLISTER RUST ERADICATOR Unavailable Unavailable Eugene, A Mechelle BLISTER RUST ERADICATOR Unavailable Unavailable Eugene, A Mechelle BLISTER RUST ERADICATOR Unavailable Unavailable Eugene, A Mechelle BLISTER RUST ERADICATOR Unavailable Unavailable Eugene, A Mechelle BLISTER RUST ERADICATOR Unavailable Unavailable Eugene, A Mechelle BLISTER RUST ERADICATOR Unavailable Unavailable [place], A Mechelle BLISTER RUST ERADICATOR Unavailable Unavailable [place], A Mechelle BLISTER RUST ERADICATOR Unavailable Unavailable [place], A Mechelle BLISTER RUST ERADICATOR Unavailable Unavailable [place], A Mechelle BLISTER RUST ERADICATOR Unavailable Unavailable [place], A Mechelle BLISTER RUST ERADICATOR Unavailable Unavailable [place], A Mechelle BLISTER RUST ERADICATOR Unavailable Unavailable [place], A Mechelle BLISTER RUST ERADICATOR Unavailable Unavailable [place], A Mechelle BLISTER RUST ERADICATOR Unavailable Unavailable [place], A Mechelle BLISTER RUST ERADICATOR Unavailable Unavailable [place], A Mechelle BLISTER RUST ERADICATOR Unavailable Unavailable [place], A Mechelle BLISTER RUST ERADICATOR Unavailable Unavailable [place], A Mechelle BLISTER RUST ERADICATOR Unavailable Unavailable [place], A Mechelle BLISTER RUST ERADICATOR Unavailable Unavailable [place], A Mechelle BLISTER RUST ERADICATOR Unavailable Unavailable [place], A Mechelle BLISTER RUST ERADICATOR Unavailable Unavailable [place], A Mechelle BLISTER RUST ERADICATOR Unavailable Unavailable [place], A Mechelle BLISTER RUST ERADICATOR Unavailable Unavailable [place], A Mechelle BLISTER RUST ERADICATOR Unavailable Unavailable [place], A Mechelle BLISTER RUST ERADICATOR Unavailable Unavailable [place], A Mechelle BLISTER RUST ERADICATOR Unavailable Unavailable [place], A Mehcelle BLISTER RUST ERADICATOR Unavailable Unavailable [place], A Mechelle BLISTER RUST ERADICATOR Unavailable Unavailable [place], A Mechelle BLISTER RUST ERADICATOR Unavailable Unavailable Eugene, A Mechelle BLISTER RUST ERADICATOR Unavailable Unavailable Shah, M Barratt PA Unavailable [...] B Allen FOLEY Unavailable Unavailable Fish, B Aleln FOLEY Unavailable Unavailable Fish, B Allen FOLEY [...] is protected by Article 27-F of the [facility] Public Health law. If you continue you may have access to information: Regarding HIV / AIDS; Provided by facilities licensed or operated by the [facility] Office of Mental Health; or Provided by the [facility] Office for People With Developmental Disabilities. If such information is present, then the following [facility] mandated warning applies: This information has been [...] law may result in a fine or fdc sentence or both. A general authorization for the release of medical or other information is NOT sufficient authorization for further disc losure. Encounters Encounter Providers Location Date Indications Data Source(s ) Office Visit Attender: Allen Nguyen MD Physical Therapy 2020 02:45:00 PM EST [facility] Attender: Allen Nguyen MD Physical Therapy 2020 02:45:00 PM EST [facility] ([facility]) Office Visit Attender: RADHA SORENSEN Physical Therapy 06/15/2020 12:30:00 PM EST [facility] ([facility]) Outpatient Attender: Allen Nguyen MDConsultant: Mechelle Ja angelicpopeye BLISTER RUST ERADICATOR 05/24/2020 04:54:00 PM EST - 05/24/2020 05:54:00 PM EST [facility] Outpatient Attender: Allen Nguyen MD Physical Therapy 05/23/2020 0 2:00:00 PM EST [facility] ([facility]) OFFICE OUTPATIENT NEW 30 MINUTES Attender: Shane SORENSEN Ph ysical Therapy 05/13/2020 10:15:00 AM EST [facility] ([facility]) Immunizations Vaccine Date Status Description Data Source(s) COVID-19 VACCINE Moderna 11/15/2020 12:00:00 AM EDT completed [facility] Vaccine Series Complete: YESThis Data wa s Submitted to [facility] [employer]. COVID-19 VACCINE Moderna 10/18/2020 12:00:00 AM EDT completed [facility] Vaccine Series Complete: NOThis Data was Submitted to [facility] [employer]. Medications Medication Brand Name Start Date Product [...] 05/31/2020 12:00:00 AM EST ORAL active [facility] ([facility]) Acetaminophen 300 MG / Codeine Phosphate 30 MG Oral Tablet [Tylenol with Codeine] Tylenol With Codeine #3 05/23/2020 12:00:00 AM EST ORAL completed [facility] ([facility]) 5-325 mg 05/11/2020 12:00:00 AM EST tablet 15 TAKE ONE TABLET BY MOUTH THREE TIMES A DAY MAXIMUM DAILY DOSE = 3 TABLETS TAKE ONE TABLET BY MOUTH THREE TIMES A DAY MAXIMUM DAILY DOSE = 3 TABLETS SOLD: 05/13/2020 [facility] Insurance Providers Payer name Policy type / Coverage type Policy ID Covered democrat ID Covered democrat's relationship to ramsay Policy Ramsay Plan Information [facility] Care [facility] Plan P [id number] S [id number] Medicaid S [id number] S [id number] [facility] PLAN XIX [id number] [facility] Care [facility] Plan P UNAVAILABLE S UNAVAILABLE Medicaid S UNAVAILABLE S [place] BLE MEDICAID [id number] SP [id number] SELF PAY UNAVAILABLE SELF UNAVAILA BLE [facility] PLAN [id number] [id number] SP [id number] [facility] O [id number] S [id number] Problems, Conditions, and Diagnoses Code Display Name Description Problem Type Effective Dates Data Source(s) [id number] Nondisplaced fracture of sha ft of fourth metacarpal bone, left hand, subsequent encounter for fracture with routine healing Nondisplaced fracture of shaft of fourth metacarpal bone, left hand, subsequent encounter for fracture with routine healing Diagnosis 05/24/2020 04:54:00 PM [facility] [id number] Encounter for screening for other viral diseases Encounter for screening for other viral diseases Diagnosis 05/24/2020 04:54:00 PM [facility] [id number] Encounter for other preprocedural examin ation Encounter for other preprocedural examination Diagnosis 05/24/2020 04:54:00 PM [facility] [id number] Essential hypertension Essential hypertension Problem 05/23/2020 12:00:00 AM EST [facility] ([facility] ) [id number] Pure hypercholesterolemia Pure hypercholesterolemia Pr oblem 05/13/2020 12:00:00 AM EST [facility] ([facility] ) Surgeries/Procedures Procedure Description Date Indications Data Source(s) RADEX WRIST COMPLETE MINIMUM 3 VIEWS 09/01/2020 12:00: 00 AM EST [facility] ([facility] ) RADEX HAND MINIMUM 3 VIEWS 07/06/2020 12:00:00 AM EST [facility] ([facility] ) RADEX HAND MINIMUM 3 VIEWS 06/15/2020 12:00:00 AM EST [facility] ([facility] OPEN TX METACARPAL FRACTURE SINGLE EA BONE 06/03/2020 12:00:00 AM EST [facility] ([facility] ) RADEX HAND MINIMUM 3 VIEWS 05/23/2020 12:00:00 AM EST [facility] ([facility] ) APPLICATION CAST ELBOW FINGER SHORT ARM 05/13/2020 12: 00:00 AM EST [facility] ([facility]) Results ID Date Data Source [id number] 05/29/2020 09:00:00 AM EST [facility] Name Value Range Interpretation Code Description Data Tamra rce(s) Supporting Document(s) SARS coronavirus 2 RNA [facility] This lab was ordered by [facility] and reported by [employer]. ID Date Data Source [id number] 05/24/2020 05:03:00 PM EST [facility] ([facility]) Name Value Range Interpretation Code Description Data Tamra rce(s) Supporting Document(s) Coronavirus Covid-19 Laboratory test result [facility] ([facility]) This nucleic acid amplification test was developed and its performance characteristics determined by [employer]. Nucleic acid amplification tests include PCR and [...] in this assay. ID Date Data Source [id number] 05/24/2020 05:03:00 PM EST [facility] Name Value Range Interpretation Code Description Data Tamra rce(s) Supporting Document(s) SARS coronavirus 2 RNA [facility] This lab was ordered by [facility] no and reported by [employer]. ID Date Data Source [id number] 05/26/2020 08:09:00 PM EST [facility] Name Value Range Interpretation Code Description Data Tamra rce(s) Supporting Document(s) SARS-CoV-2, YVETTE Not Detected Not Detected [facility] This nucleic acid amplification test was developed and its performancecharacteristics determined by [employer]. Nucleic acidamplification tests include PCR and TMA. [...]
== END 2021-04-12 06:23 | disposition left against medical advice (07) ==
LOC: M ED 03:36
DX: Z53.21 Procedure and treatment not carried out due to patient leaving prior to being seen by health care provider (principal)

== ENCOUNTER 2022-09-07 22:35 | Inpatient (IN) | payer OTHER ==
[~2022-09-07] VITALS: Ht 177.8 cm; Wt 88.6 kg
[2022-09-07] MEDS ORDERED: MIDAZOLAM INJ 2MG/2ML VIAL IV STA (22:56)
[2022-09-07] MEDS ORDERED: MIDAZOLAM INJ 2MG/2ML VIAL IV ONE (23:00)
[2022-09-07] MEDS ORDERED: ACETAMINOPHEN 650MG SUPP As Ordered ONE (23:05)
[2022-09-07] MEDS ORDERED: ACETAMINOPHEN 650MG SUPP PR ONE (23:30)
[2022-09-07] MEDS ORDERED: NS 1,000 ML IV ONE (23:30)
[2022-09-07] MEDS ORDERED: NS 2,520 ML in IV 1 EA IV ONE (23:35)
[2022-09-07 23:54] LABS: CK-MB VALUE MASS < 1.0 NG/ML (<3.6)
[2022-09-07 23:55] LABS: AMYLASE 61 U/L (30-118)
[2022-09-07 23:56] LABS: ALBUMIN 2.2 G/DL (3.2-5.2); ALKALINE PHOSPHATASE 123 U/L (46-116); ALT/SGPT 268 U/L (7.0-40); AST/SGOT 310 U/L (<34); BILIRUBIN,DIRECT 0.7 MG/DL (<0.4); BILIRUBIN,TOTAL 1.1 MG/DL (0.3-1.2); BLOOD UREA NITROGEN 22 MG/DL (9-23); CALCIUM LEVEL 7.9 MG/DL (8.5-10.1); CARBON DIOXIDE LEVEL 29 MMOL/L (20-31); CHLORIDE LEVEL 94 MMOL/L (98-107); CREATININE FOR GFR 1.37 MG/DL (0.70-1.30); GLOMERULAR FILTRATION RATE > 60.0 (>60); GLUCOSE, FASTING 130 MG/DL (60-100); POTASSIUM SERUM 3.8 MMOL/L (3.5-5.1); SODIUM LEVEL 133 MMOL/L (136-145); TOTAL PROTEIN 7.7 G/DL (5.7-8.2)
[2022-09-08] VITALS (16 sets, daily range): BP systolic 116–145; BP diastolic 63–94
[2022-09-08 00:01] LABS: BASO # 0.1 10^3/uL (0.0-0.2); BASO % 0.2 % (0.0-1.0); HEMATOCRIT 37.2 % (42.0-52.0); HEMOGLOBIN 12.2 g/dl (13.5-17.5); LYMPH # 1.5 10^3/uL (1.5-5.0); LYMPH % 4.4 % (24.0-44.0); MEAN CORPUSCULAR HEMOGLOBIN 29.5 pg (27.0-33.0); MEAN CORPUSCULAR HGB CONC 32.8 g/dl (32.0-36.5); MEAN CORPUSCULAR VOLUME 89.9 fl (80.0-96.0); MONO % 6.4 % (2.0-8.0); NEUTROPHILS # 29.5 10^3/uL (1.5-8.5); NEUTROPHILS % 86.9 % (36.0-66.0); PLATELET COUNT, AUTOMATED 342 10^3/uL (150-450); RED BLOOD COUNT 4.14 10^6/uL (4.30-6.10)
[2022-09-08 00:03] LABS: ABG BASE EXCESS 2.4 (-2.0-2.0); ABG HCO3 25.1 MEQ/L (22.0-26.0); ABG O2 SATURATION 93.5 % (95.0-99.0); ABG PARTIAL PRESSURE CO2 32.7 mmHg (35.0-45.0); ABG PARTIAL PRESSURE O2 63.2 mmHg (75.0-100.0); ABG STANDARD HCO3 26.5 MEQ/L (22.0-26.0); ABG TOTAL CO2 26.1 MEQ/L (22.0-29.0); ABG pH (ARTERIAL) 7.503 UNITS (7.350-7.450)
[2022-09-08 00:04] LABS: MONO # 2.2 10^3/uL (0.0-0.8)
[2022-09-08 00:06] LABS: CPK CREATINE PHOSPHOKINASE 135 U/L (46-171); MB/CK RELATIVE INDEX 0.74 (< OR =4)
[2022-09-08 00:07] LABS: APPEARANCE, URINE CLOUDY (CLEAR); BACTERIA, URINE AUTO NEGATIVE (NEGATIVE); BILIRUBIN, URINE AUTO 1+ (NEGATIVE); BLOOD, URINE BLOOD 2+ (NEGATIVE); COLOR, URINE AMBER (YELLOW); GLUCOSE, URINE (UA) AUTO 1+ mg/dL (NEGATIVE); KETONE, URINE AUTO NEGATIVE (NEGATIVE); LEUKOCYTE ESTERASE, URINE AUTO NEGATIVE (NEGATIVE); MUCUS, URINE SMALL (NEGATIVE); NITRITE, URINE AUTO NEGATIVE (NEGATIVE); PROTEIN, URINE AUTO 2+ mg/dL (NEGATIVE); RBC, URINE AUTO 9 /HPF (0-3); SPECIFIC GRAVITY URINE AUTO 1.019 (1.002-1.035); SQUAMOUS EPITHELIAL CELL UR AU 1 /HPF (0-6); WBC, URINE AUTO 23 /HPF (0-3)
[2022-09-08 00:30] LABS: AMPHETAMINES LEVEL URINE NEGATIVE (NEGATIVE)
[2022-09-08 00:31] LABS: BARBITURATES URINE NEGATIVE (NEGATIVE); BENZODIAZEPINES URINE NEGATIVE (NEGATIVE); COCAINE METABOLITE URINE NEGATIVE (NEGATIVE); METHADONE URINE NEGATIVE (NEGATIVE); OPIATES URINE NEGATIVE (NEGATIVE); PHENCYCLIDINE URINE NEGATIVE (NEGATIVE)
[2022-09-08] MEDS ORDERED: VANCOMYCIN HCL 1,500 MG in IV FLUID PLACE HOLDER 1 EA IV ONE (00:35)
[2022-09-08 00:37] LABS: CANNABINOIDS URINE POSITIVE (NEGATIVE)
[2022-09-08] MEDS ORDERED: PIPERACILLIN/TAZOBACTAM SOD 4.5 GM in D5W MINI-BAG PLUS 50 ML IV ONE (00:40)
[2022-09-08] MEDS ORDERED: LORazepam 2 MG/ML 1ML VIAL As Ordered ONE (00:56)
[2022-09-08] MEDS ORDERED: LORazepam 2 MG/ML 1ML VIAL IV STA (00:59)
[2022-09-08 01:26] LABS: RSV AMPLIFICATION NEGATIVE (NEGATIVE)
[2022-09-08] MEDS ORDERED: VANCOMYCIN HCL 750 MG, VIAL MATE ADAPTER 1 EACH in D5W 250 ML IV ONE ×2 (01:30→02:30)
[2022-09-08 02:00] LABS: INR 1.32; PROTHROMBIN TIME 16.6 SECONDS (12.5-14.5)
[2022-09-08 02:01] LABS: PARTIAL THROMBOPLASTIN TIME 33.6 SECONDS (24.8-34.2)
[2022-09-08 02:03] LABS: ABG BASE EXCESS 2.2 (-2.0-2.0); ABG HCO3 25.3 MEQ/L (22.0-26.0); ABG O2 SATURATION 94.7 % (95.0-99.0); ABG PARTIAL PRESSURE CO2 33.9 mmHg (35.0-45.0); ABG PARTIAL PRESSURE O2 68.7 mmHg (75.0-100.0); ABG STANDARD HCO3 26.4 MEQ/L (22.0-26.0); ABG TOTAL CO2 26.4 MEQ/L (22.0-29.0); ABG pH (ARTERIAL) 7.491 UNITS (7.350-7.450)
[2022-09-08] MEDS ORDERED: MIDAZOLAM INJ 2MG/2ML VIAL IV STA (02:23)
[2022-09-08] MEDS ORDERED: LISI5TAB11 PO (02:40)
[2022-09-08] MEDS ORDERED: SERT50TA29 PO (02:40)
[2022-09-08] MEDS ORDERED: HOME MED LIST COMPLETE! XX SCH (02:45)
[2022-09-08 04:03] LABS: ETHYL ALCOHOL (ETHANOL) < 0.003 % (0.000-0.010)
[2022-09-08] MEDS ORDERED: MIDAZOLAM INJ 2MG/2ML VIAL IV ONE (04:10)
[2022-09-08 04:24] LABS: HEPATITIS B SURFACE ANTIGEN NEGATIVE (NEGATIVE)
[2022-09-08 04:45] LABS: HEPATITIS B CORE ANTIBODY IGM NEGATIVE (NEGATIVE); HEPATITIS C VIRUS ABY INDEX 0.1 INDEX (<0.8)
[2022-09-08] MEDS ORDERED: NS 1,000 ML IV ONE ×2 (04:45→07:30)
[2022-09-08] MEDS ORDERED: VANCOMYCIN HCL IV SCH (04:50)
[2022-09-08] MEDS ORDERED: FLUID PLACE HOLDER IV SCH (04:50)
[2022-09-08] MEDS ORDERED: FLUID PLACE HOLDER IV ONE (04:50)
[2022-09-08] MEDS ORDERED: ACYCLOVIR IV ONE ×2 (04:50→06:00)
[2022-09-08] MEDS ORDERED: ACETAMINOPHEN 1000MG 100ML IV BAG IV ONE (04:50)
[2022-09-08] MEDS ORDERED: ISOVUE-370 76% 100ML VIAL As Ordered ONE (05:11)
[2022-09-08] MEDS ORDERED: NS 1,000 ML IV SCH (05:30)
[2022-09-08 05:46] LABS: CSF TUBE# TP TUBE 3; TOTAL PROTEIN,CSF 49.5 MG/DL (15-45)
[2022-09-08 05:48] LABS: CSF TUBE# GLU TUBE 3
[2022-09-08] MEDS ORDERED: NS IV ONE (06:00)
[2022-09-08 06:07] LABS: APPEARANCE, CSF CLEAR (CLEAR); COLOR, CSF COLORLESS (COLORLESS); CSF TUBE# CELL CNT TUBE 1
[2022-09-08 06:08] LABS: APPEARANCE, CSF CLEAR (CLEAR); COLOR, CSF COLORLESS (COLORLESS); CSF TUBE# CELL CNT TUBE 4
[2022-09-08] MEDS: cefTRIAXone SOD 2 GM in D5W MINI-BAG PLUS 50 ML IV SCH ×2 (06:21→16:34)
[2022-09-08] MEDS: HEPARIN SOD (PORCINE) 5000UNITS/ML 1ML VIAL/SYRINGE SC SCH ×3 (06:30→21:07)
[2022-09-08] MEDS: CHLORHEXIDINE GLUCONATE 0.12 % 15ML UDC (PERIDEX ORAL RINSE) MT SCH ×2 (07:36→21:02)
[2022-09-08] MEDS ORDERED: AMPICILLIN SOD 2 GM in D5W MINI-BAG PLUS 100 ML IV SCH (08:00)
[2022-09-08] MEDS: PANTOPRAZOLE 40MG VIAL IV SCH (09:29)
[2022-09-08] MEDS: VANCOMYCIN HCL 1,000 MG, VIAL MATE ADAPTER 1 EACH in D5W 250 ML IV SCH ×2 (10:25→17:37)
[2022-09-08 10:29] LABS: HEMATOCRIT 31.4 % (42.0-52.0); HEMOGLOBIN 10.3 g/dl (13.5-17.5); MEAN CORPUSCULAR HEMOGLOBIN 30.1 pg (27.0-33.0); MEAN CORPUSCULAR HGB CONC 32.8 g/dl (32.0-36.5); MEAN CORPUSCULAR VOLUME 91.8 fl (80.0-96.0); PLATELET COUNT, AUTOMATED 269 10^3/uL (150-450); RED BLOOD COUNT 3.42 10^6/uL (4.30-6.10); WHITE BLOOD COUNT 28.1 10^3/uL (4.0-10.0)
[2022-09-08 11:03] LABS: ALBUMIN 1.8 G/DL (3.2-5.2); ALKALINE PHOSPHATASE 95 U/L (46-116); ALT/SGPT 195 U/L (7.0-40); AST/SGOT 173 U/L (<34); BLOOD UREA NITROGEN 17 MG/DL (9-23); CALCIUM LEVEL 6.9 MG/DL (8.5-10.1); CARBON DIOXIDE LEVEL 24 MMOL/L (20-31); CHLORIDE LEVEL 105 MMOL/L (98-107); CREATININE FOR GFR 0.94 MG/DL (0.70-1.30); GLOMERULAR FILTRATION RATE > 60.0 (>60); GLUCOSE, FASTING 104 MG/DL (60-100); MAGNESIUM LEVEL 2.3 MG/DL (1.8-2.4); POTASSIUM SERUM 3.6 MMOL/L (3.5-5.1); SODIUM LEVEL 138 MMOL/L (136-145); TOTAL PROTEIN 6.2 G/DL (5.7-8.2)
[2022-09-08] MEDS ORDERED: KETOROLAC 30 MG/ML 1ML VIAL IV STA (14:36)
[2022-09-08] MEDS ORDERED: KETOROLAC 30 MG/ML 1ML VIAL As Ordered ONE (14:38)
[2022-09-08] MEDS: LR 1,000 ML IV SCH (16:49)
[2022-09-08] MEDS ORDERED: KETOROLAC 30 MG/ML 1ML VIAL IV ONE (20:50)
[2022-09-09] VITALS (15 sets, daily range): BP systolic 121–155; BP diastolic 64–96
[2022-09-09] MEDS ORDERED: NS 500 ML IV ONE (00:05)
[2022-09-09] MEDS: VANCOMYCIN HCL 1,000 MG, VIAL MATE ADAPTER 1 EACH in D5W 250 ML IV SCH ×3 (02:20→17:56)
[2022-09-09] MEDS ORDERED: KETOROLAC 30 MG/ML 1ML VIAL IV ONE ×2 (03:40→10:20)
[2022-09-09] MEDS: cefTRIAXone SOD 2 GM in D5W MINI-BAG PLUS 50 ML IV SCH ×2 (04:18→17:03)
[2022-09-09] MEDS: LR 1,000 ML IV SCH ×2 (04:51→17:03)
[2022-09-09 05:00] LABS: BASO # 0.1 10^3/uL (0.0-0.2); BASO % 0.2 % (0.0-1.0); EOS % 0.2 % (0.0-3.0); HEMATOCRIT 27.9 % (42.0-52.0); HEMOGLOBIN 9.5 g/dl (13.5-17.5); LYMPH # 1.7 10^3/uL (1.5-5.0); LYMPH % 8.4 % (24.0-44.0); MEAN CORPUSCULAR HEMOGLOBIN 30.9 pg (27.0-33.0); MEAN CORPUSCULAR HGB CONC 34.1 g/dl (32.0-36.5); MEAN CORPUSCULAR VOLUME 90.9 fl (80.0-96.0); MONO # 0.8 10^3/uL (0.0-0.8); MONO % 4.1 % (2.0-8.0); NEUTROPHILS # 17.6 10^3/uL (1.5-8.5); NEUTROPHILS % 86.2 % (36.0-66.0); PLATELET COUNT, AUTOMATED 269 10^3/uL (150-450); RED BLOOD COUNT 3.07 10^6/uL (4.30-6.10); WHITE BLOOD COUNT 20.5 10^3/uL (4.0-10.0)
[2022-09-09] MEDS: HEPARIN SOD (PORCINE) 5000UNITS/ML 1ML VIAL/SYRINGE SC SCH ×3 (05:12→21:08)
[2022-09-09 05:34] LABS: ALBUMIN 1.5 G/DL (3.2-5.2); ALKALINE PHOSPHATASE 76 U/L (46-116); ALT/SGPT 125 U/L (7.0-40); AST/SGOT 85 U/L (<34); BILIRUBIN,TOTAL 0.7 MG/DL (0.3-1.2); BLOOD UREA NITROGEN 18 MG/DL (9-23); CALCIUM LEVEL 6.5 MG/DL (8.5-10.1); CARBON DIOXIDE LEVEL 25 MMOL/L (20-31); CHLORIDE LEVEL 106 MMOL/L (98-107); CREATININE FOR GFR 0.86 MG/DL (0.70-1.30); GLOMERULAR FILTRATION RATE > 60.0 (>60); GLUCOSE, FASTING 96 MG/DL (60-100); MAGNESIUM LEVEL 2.1 MG/DL (1.8-2.4); PHOSPHORUS LEVEL 2.6 MG/DL (2.5-4.9); POTASSIUM SERUM 3.2 MMOL/L (3.5-5.1); SODIUM LEVEL 140 MMOL/L (136-145); TOTAL PROTEIN 5.3 G/DL (5.7-8.2)
[2022-09-09 05:46] LABS: ABG BASE EXCESS 0.9 (-2.0-2.0); ABG HCO3 23.9 MEQ/L (22.0-26.0); ABG PARTIAL PRESSURE CO2 32.1 mmHg (35.0-45.0); ABG PARTIAL PRESSURE O2 75.4 mmHg (75.0-100.0); ABG STANDARD HCO3 25.3 MEQ/L (22.0-26.0); ABG TOTAL CO2 24.8 MEQ/L (22.0-29.0); ABG pH (ARTERIAL) 7.489 UNITS (7.350-7.450)
[2022-09-09] MEDS ORDERED: KCL 10MEQ/100ML SWI (KRUN) 10 MEQ in IV 1 EA IV ONE ×3 (08:00→11:00)
[2022-09-09] MEDS: PANTOPRAZOLE 40MG VIAL IV SCH (08:17)
[2022-09-09] MEDS: CHLORHEXIDINE GLUCONATE 0.12 % 15ML UDC (PERIDEX ORAL RINSE) MT SCH ×2 (08:18→20:43)
[2022-09-09] MEDS ORDERED: LR 1,000 ML IV ONE ×2 (09:15→10:20)
[2022-09-09] MEDS ORDERED: ASPIRIN 300 MG SUPP PR ONE (20:20)
[2022-09-09] MEDS ORDERED: bisoproloL fumarate 5 MG TAB PO ONE (22:45)
[2022-09-10] VITALS (17 sets, daily range): BP systolic 127–154; BP diastolic 78–99
[2022-09-10] MEDS: VANCOMYCIN HCL 1,000 MG, VIAL MATE ADAPTER 1 EACH in D5W 250 ML IV SCH (01:51)
[2022-09-10] MEDS: LR 1,000 ML IV SCH (03:16)
[2022-09-10] MEDS ORDERED: KETOROLAC 30 MG/ML 1ML VIAL IV ONE (03:40)
[2022-09-10] MEDS: cefTRIAXone SOD 2 GM in D5W MINI-BAG PLUS 50 ML IV SCH ×2 (04:05→18:27)
[2022-09-10 04:51] LABS: BASO # 0.1 10^3/uL (0.0-0.2); BASO % 0.3 % (0.0-1.0); EOS # 0.1 10^3/uL (0.0-0.5); EOS % 0.9 % (0.0-3.0); HEMATOCRIT 29.8 % (42.0-52.0); LYMPH # 1.7 10^3/uL (1.5-5.0); LYMPH % 10.2 % (24.0-44.0); MEAN CORPUSCULAR HEMOGLOBIN 30.6 pg (27.0-33.0); MEAN CORPUSCULAR HGB CONC 33.6 g/dl (32.0-36.5); MEAN CORPUSCULAR VOLUME 91.1 fl (80.0-96.0); MONO # 0.9 10^3/uL (0.0-0.8); MONO % 5.4 % (2.0-8.0); NEUTROPHILS # 13.4 10^3/uL (1.5-8.5); NEUTROPHILS % 82.3 % (36.0-66.0); PLATELET COUNT, AUTOMATED 322 10^3/uL (150-450); RED BLOOD COUNT 3.27 10^6/uL (4.30-6.10); WHITE BLOOD COUNT 16.3 10^3/uL (4.0-10.0)
[2022-09-10 05:14] LABS: ALBUMIN 1.5 G/DL (3.2-5.2); ALKALINE PHOSPHATASE 73 U/L (46-116); ALT/SGPT 113 U/L (7.0-40); AST/SGOT 77 U/L (<34); BILIRUBIN,TOTAL 0.8 MG/DL (0.3-1.2); BLOOD UREA NITROGEN 18 MG/DL (9-23); CALCIUM LEVEL 6.8 MG/DL (8.5-10.1); CARBON DIOXIDE LEVEL 23 MMOL/L (20-31); CHLORIDE LEVEL 105 MMOL/L (98-107); CREATININE FOR GFR 0.76 MG/DL (0.70-1.30); GLOMERULAR FILTRATION RATE > 60.0 (>60); GLUCOSE, FASTING 88 MG/DL (60-100); MAGNESIUM LEVEL 1.6 MG/DL (1.8-2.4); POTASSIUM SERUM 3.6 MMOL/L (3.5-5.1); SODIUM LEVEL 139 MMOL/L (136-145); TOTAL PROTEIN 5.3 G/DL (5.7-8.2)
[2022-09-10] MEDS: HEPARIN SOD (PORCINE) 5000UNITS/ML 1ML VIAL/SYRINGE SC SCH ×2 (05:43→14:00)
[2022-09-10] MEDS ORDERED: MAG SULF 1GM/100ML (MAG RUN) 1 GM in IV 1 EA IV ONE (07:20)
[2022-09-10] MEDS ORDERED: LR 1,000 ML IV ONE (08:00)
[2022-09-10] MEDS: MAG SULF 1GM/100ML (MAG RUN) 1 GM in IV 1 EA IV SCH ×2 (08:06→09:03)
[2022-09-10] MEDS: CHLORHEXIDINE GLUCONATE 0.12 % 15ML UDC (PERIDEX ORAL RINSE) MT SCH ×2 (08:13→21:31)
[2022-09-10] MEDS: PANTOPRAZOLE 40MG VIAL IV SCH (08:13)
[2022-09-10] MEDS ORDERED: LORazepam 2 MG/ML 1ML VIAL IM STA (08:59)
[2022-09-10] MEDS: D5W/0.45% SODIUM CHLORIDE 1,000 ML IV SCH ×2 (09:03→18:26)
[2022-09-10] MEDS ORDERED: CALCIUM GLUCONATE 1,000 MG in D5W MINI-BAG PLUS 100 ML IV ONE (10:00)
[2022-09-10] MEDS ORDERED: LORazepam 2 MG/ML 1ML VIAL IV STA (16:29)
[2022-09-10 16:38] LABS: IMMUNOGLOBULIN A 214.4 MG/DL (40-350); IMMUNOGLOBULIN G 1263 MG/DL (650-1600)
[2022-09-10 16:39] LABS: IMMUNOGLOBULIN M 58.3 MG/DL (50-300)
[2022-09-10] MEDS ORDERED: PROHANCE 279.3MG/ML 5ML VIAL As Ordered ONE (16:51)
[2022-09-10] MEDS ORDERED: PROHANCE 279.3MG/ML 15ML VIAL As Ordered ONE (16:51)
[2022-09-10 17:26] LABS: HIV 1&2 SCREEN CENTAUR NEGATIVE (NEGATIVE)
[2022-09-10] MEDS ORDERED: levETIRAcetam INJection 500 MG in D5W MINI-BAG PLUS 100 ML IV SCH (20:00)
[2022-09-10] MEDS ORDERED: ASPIRIN 300 MG SUPP PR ONE (21:30)
== END 2022-09-10 21:35 | disposition short-term general hospital (02) | DRG 720 ==
LOC: M ED 22:35 → EDBD 22:35 → M ED INP 09-08 04:50 → M ICU 09-08 06:04
PROVIDERS: ADMIT Internal Medicine; ATTEND Internal Medicine
DX: A40.9 Streptococcal sepsis, unspecified (principal); I63.9 Cerebral infarction, unspecified; J69.0 Pneumonitis due to inhalation of food and vomit; G93.41 Metabolic encephalopathy; G04.2 Bacterial meningoencephalitis and meningomyelitis, not elsewhere classified; N17.9 Acute kidney failure, unspecified; R16.0 Hepatomegaly, not elsewhere classified; G04.90 Encephalitis and encephalomyelitis, unspecified; J13 Pneumonia due to Streptococcus pneumoniae; E83.51 Hypocalcemia; E87.6 Hypokalemia; I10 Essential (primary) hypertension; R74.01 Elevation of levels of liver transaminase levels; Z79.899 Other long term (current) drug therapy

== ENCOUNTER → 2025-01-05 | Outpatient (CLI) | payer OTHER ==
[~2025-01-05] MED LIST changes: +LISI5TAB11 PO; +SERT50TA29 PO
== END ==
LOC: M SOG 11:40
PROVIDERS: ATTEND Physician Assistant
DX: M25.532 Pain in left wrist (principal)

== ENCOUNTER 2025-03-14 13:23 | Emergency (ER) | payer OTHER ==
[~2025-03-14] VITALS: Ht 170.2 cm; Wt 100.0 kg
[~2025-03-14 13:23] MED LIST changes: -IBUP-1022 PO; +IBUP600T42 PO
[2025-03-14 14:24] LABS: BASO # 0.1 10^3/uL (0.0-0.2); BASO % 0.6 % (0.0-1.0); EOS # 0.1 10^3/uL (0.0-0.5); EOS % 1.4 % (0.0-3.0); LYMPH # 2.9 10^3/uL (1.5-5.0); LYMPH % 31.4 % (24.0-44.0); MONO # 0.5 10^3/uL (0.0-0.8); MONO % 5.1 % (2.0-8.0); NEUTROPHILS # 5.7 10^3/uL (1.5-8.5); NEUTROPHILS % 61.2 % (36.0-66.0); PLATELET COUNT, AUTOMATED 241 10^3/uL (150-450)
[2025-03-14 14:52] LABS: CK-MB VALUE MASS < 1.0 NG/ML (<3.6)
[2025-03-14 14:53] LABS: CALCIUM LEVEL 9.0 MG/DL (8.5-10.1); CARBON DIOXIDE LEVEL 23 MMOL/L (20-31); CHLORIDE LEVEL 109 MMOL/L (98-107); CREATININE FOR GFR 0.89 MG/DL (0.70-1.30); GLOMERULAR FILTRATION RATE > 90.0 (>60); POTASSIUM SERUM 3.9 MMOL/L (3.5-5.1); SODIUM LEVEL 140 MMOL/L (136-145)
[2025-03-14 15:13] LABS: CPK CREATINE PHOSPHOKINASE 99 U/L (46-171)
[2025-03-14] MEDS: LIDOCAINE 4% CREAM 5 GM (LMX4) TOP ONE (15:35)
[2025-03-14 17:15] VITALS: BP 142/84; TEMP 98; O2SAT 96
[2025-03-14] MEDS ORDERED: LIDO4CRE12 TOP (17:17)
== END 2025-03-14 17:30 | disposition home or self-care (01) ==
LOC: EDBD 13:23 → M ED 13:23
DX: R07.89 Other chest pain (principal); R55 Syncope and collapse; I44.4 Left anterior fascicular block; I10 Essential (primary) hypertension; F17.200 Nicotine dependence, unspecified, uncomplicated; Z86.79 Personal history of other diseases of the circulatory system; Z79.899 Other long term (current) drug therapy

== ENCOUNTER 2025-06-23 02:49 | Emergency (ER) | payer OTHER ==
[~2025-06-23] VITALS: Ht 170.2 cm; Wt 95.5 kg
[~2025-06-23 02:49] MED LIST changes: +LIDO4CRE12 TOP
[2025-06-23] MEDS ORDERED: LISI10TA22 (02:56)
[2025-06-23 03:24] LABS: BASO # 0.1 10^3/uL (0.0-0.2); BASO % 0.6 % (0.0-1.0); EOS # 0.0 10^3/uL (0.0-0.5); EOS % 0.1 % (0.0-3.0); LYMPH # 2.2 10^3/uL (1.5-5.0); LYMPH % 20.0 % (24.0-44.0); MONO # 1.3 10^3/uL (0.0-0.8); MONO % 11.9 % (2.0-8.0); NEUTROPHILS # 7.4 10^3/uL (1.5-8.5); NEUTROPHILS % 67.1 % (36.0-66.0); PLATELET COUNT, AUTOMATED 191 10^3/uL (150-450)
[2025-06-23 04:19] LABS: ALT/SGPT 24 U/L (7.0-40); AST/SGOT 34 U/L (<34); CALCIUM LEVEL 8.8 MG/DL (8.5-10.1); CARBON DIOXIDE LEVEL 21 MMOL/L (20-31); CHLORIDE LEVEL 107 MMOL/L (98-107); CREATININE FOR GFR 1.07 MG/DL (0.70-1.30); GLOMERULAR FILTRATION RATE > 90.0 (>60); POTASSIUM SERUM 3.9 MMOL/L (3.5-5.1); SODIUM LEVEL 140 MMOL/L (136-145)
[2025-06-23 04:50] VITALS: BP 139/87; TEMP 99.4; O2SAT 99
[2025-06-26] MEDS ORDERED: VENTAER INH (15:21)
[2025-06-26] MEDS ORDERED: IBUP80TA PO (15:21)
[2025-06-26] MEDS ORDERED: AMOX875T2 PO (15:21)
== END 2025-06-23 06:21 | disposition left against medical advice (07) ==
LOC: M ED 02:49
DX: Z53.21 Procedure and treatment not carried out due to patient leaving prior to being seen by health care provider (principal)